=== PATIENT | female | born 1950 | race Caucasian/White ===

== ENCOUNTER 2016-08-02 13:48 | Inpatient (IN) | payer OTHER ==
[~2016-08-02] VITALS: Ht 157.5 cm; Wt 89.0 kg
[~2016-08-02 13:48] MED LIST: AMIO200T2 PO; ASPI81TA3 PO; IBUP800T25 PO; ONDA4TAB35 PO; OSLT75C PO
[2016-08-02] MEDS ORDERED: SOD CHLORIDE 0.9% 1,000 ML IV STA (20:00)
[2016-08-02] MEDS ORDERED: ONDANSETRON 4 MG INJ IV STA (20:00)
[2016-08-02] MEDS ORDERED: KETOROLAC 15 MG INJ IV STA (20:00)
[2016-08-02 20:28] LABS: ADD SCAN DIFF NO
[2016-08-02 20:31] LABS: BASOPHILS % 0.5 % (0.0-2.0); EOSINOPHILS # 0.1 10^3/ul (0.0-0.5); EOSINOPHILS % 1.1 % (0.0-7.0); HEMATOCRIT 39.9 % (37.0-47.0); HEMOGLOBIN 13.1 g/dl (12.0-16.0); LYMPHOCYTES # 1.8 10^3/ul (0.8-2.9); LYMPHOCYTES % 28.1 % (15.0-51.0); MEAN CORPUSCULAR HEMOGLOBIN 30.7 pg (29.0-33.0); MEAN CORPUSCULAR HGB CONC 32.8 g/dl (32.0-37.0); MEAN CORPUSCULAR VOLUME 93.4 fl (82.0-101.0); MEAN PLATELET VOLUME 9.6 fl (7.4-10.4); MONOCYTE # 0.7 10^3/ul (0.3-0.9); MONOCYTES % 10.6 % (0.0-11.0); NEUTROPHIL # 3.8 10^3/ul (1.6-7.5); NEUTROPHILS % 59.5 % (39.0-77.0); PLATELET COUNT 245 10^3/UL (140-415); RED BLOOD COUNT 4.27 10^6/ul (4.20-5.40); RED CELL DISTRIBUTION WIDTH 13.6 % (11.5-14.5); WHITE BLOOD COUNT 6.4 10^3/ul (4.8-10.8)
[2016-08-02 20:43] LABS: ALBUMIN 3.8 g/dl (3.3-4.9); CHLORIDE 105 mmol/L (97-110); POTASSIUM 3.9 mmol/L (3.5-5.1); SODIUM 140 mmol/L (135-144)
[2016-08-02 20:45] LABS: CREATININE 0.84 mg/dl (0.44-1.00)
[2016-08-02 20:46] LABS: ALANINE AMINOTRANSFERASE 28 IU/L (13-69); ALBUMIN/GLOBULIN RATIO 1.31; ALKALINE PHOSPHATASE 105 IU/L (42-121); ANION GAP 15 (8-16); ASPARTATE AMINO TRANSFERASE 26 IU/L (15-46); BILIRUBIN,INDIRECT 0.1 mg/dl (0-1.1); BILIRUBIN,TOTAL 0.1 mg/dl (0.2-1.3); BLOOD UREA NITROGEN 24 mg/dl (7-20); CALCIUM 9.4 mg/dl (8.4-10.2); CARBON DIOXIDE 24 mmol/L (21-31); GLUCOSE 110 mg/dl (70-220); TOTAL PROTEIN 6.7 g/dl (6.1-8.1)
[2016-08-02 21:04] LABS: TROPONIN-I < 0.012 ng/ml (0.00-0.12)
--- NOTE | 2016-08-02 21:04 | RADRPT ---
PROCEDURE: XR Chest. CLINICAL INDICATION: Abdominal pain. Chest pain. TECHNIQUE: Single frontal view of the chest was obtained COMPARISON: Chest dated 08/16/2014. FINDINGS: Mild cardiomegaly. Portable technique accentuates pulmonary vascular markings. Mild pulmonary vascular congestion. There is no pleural effusion or pneumothorax. IMPRESSION: Mild pulmonary vascular congestion. RPTAT: [facility] Physician Cherie Date Time Electronically viewed and signed by Shiela Rendon Physician on 08/02/2016 21:03 RS/
--- NOTE | 2016-08-02 21:54 | ERA ---
ER Documentation Chief Complaint Date/Time DATE: 08/02/16 TIME: 21:46 Chief Complaint dizzy,tired,[place],sob x 3 days HPI 66-year-old woman with multiple complaints including chest pain and pressure, palpitations, feeling weak, dizzy and tired 3 days. She does have a history of atrial fibrillation and has been using her medications including amiodarone daily as prescribed. She denies loss of consciousness, no melena or blood per rectum, no fevers or chills, no weakness in her arms or legs. ROS All systems reviewed and are negative except as per history of present illness. Medications Home Meds Active Scripts Ibuprofen* (Motrin*) 800 Mg Tab, 800 MG PO Q6H Y for PAIN AND OR ELEVATED TEMP, #30 TAB Prov:BENITO ZHU MD 05/16/15 Ondansetron Hcl* (Zofran* ODT) 4 mg -ODT Tab.disper, 4 MG PO Q6 Y for NAUSEA AND /OR VOMITING, #30 TAB Prov:BENITO ZHU MD 05/16/15 Oseltamivir Phosphate* (Tamiflu*) 75 Mg Capsule, 75 MG PO BID for 5 Days, CAP Prov:BENITO ZHU MD 05/16/15 Aspirin* (Aspirin* Chew) 81 Mg Tab.chew, 81 MG PO DAILY, #30 TAB.CHEW 11 Refills Prov:SHIRA MARKHAM 10/17/14 Amiodarone Hcl* (Amiodarone Hcl*) 200 Mg Tablet, 200 MG PO DAILY, #30 TAB 3 Refills Take 200mg twice a day for 5 days. Then 200mg once a day Prov:SHIRA MARKHAM 10/17/14 Amiodarone Hcl* (Amiodarone Hcl*) 200 Mg Tablet, 200 MG PO BID, #10 TAB Prov:SHIRA MARKHAM 10/17/14 Allergies Allergies: Coded Allergies: Penicillins (Unverified Allergy, Unknown, PRURITUS, 10/16/14) PMhx/Soc Atrial fibrillation, hypertension, possible CHF History of Surgery: Yes (HYSTERECTOMY) Anesthesia Reaction: No Hx Neurological Disorder: No Hx Respiratory Disorders: No Hx Cardiac Disorders: Yes (PALPITATIONS/AFIB, HTN) Hx Psychiatric Problems: Yes (ANXIETY) Hx Miscellaneous Medical Probl: Yes (HIGH CHOLESTEROL) Hx Alcohol Use: No Hx Substance Use: No Hx Tobacco Use: No Smoking Status: Never smoker FmHx Family History: No diabetes Physical Exam Vitals Vital Signs Date Time Temp Pulse Resp B/P Pulse Ox O2 Delivery O2 Flow Rate FiO2 08/02/16 22:19 97.7 99 16 90/61 98 Room Air 08/02/16 19:56 97.7 125 16 94/72 98 Room Air 08/02/16 13:56 98.1 99 20 105/62 99 Physical Exam GENERAL: Well-developed, well-nourished, afebrile HEENT: Moist mucous membranes, pink conjunctiva, no cervical spine tenderness or step-off deformities, no goiter, no jaundice or icterus, extraocular movements intact without pain. No submandibular induration, and no pharyngeal erythema NEURO: Alert and oriented 3, cranial nerves II through XII intact bilaterally, pupils equal round reactive to light, no focal deficits or facial asymmetry, sensation intact distally Strength 5/5 in upper and lower extremities bilaterally CARDIAC: Tachycardic and regular, no murmurs rubs gallops LUNGS: Bibasilar crackles no wheezing or stridor ABDOMEN: Soft nontender, no guarding, no rigidity, no rebound, no psoas sign no obturator sign. Normoactive bowel sounds SKIN: Warm and dry to touch, no abrasions, contusions, or hematomas, no lacerations, no ecchymosis, no target lesions, and without ulcers EXTREMITIES: No clubbing cyanosis, 2+ pitting edema in the lower extremities bilaterally, calves are bilaterally symmetrical, no Homans sign, no popliteal cord sign. Distal pulses equal and bilateral PSYCH: Normal affect without agitation or irritability Result Diagram: 08/02/16201408/02/162014 Results 24 hrs Laboratory Tests Test 08/02/16 20:15 White Blood Count 6.410^3/ul Red Blood Count 4.2710^6/ul Hemoglobin 13.1g/dl Hematocrit 39.9% Mean Corpuscular Volume 93.4fl Mean Corpuscular Hemoglobin 30.7pg Mean Corpuscular Hemoglobin Concent 32.8g/dl Red Cell Distribution Width 13.6% Platelet Count 70483^3/UL Mean Platelet Volume 9.6fl Neutrophils % 59.5% Lymphocytes % 28.1% Monocytes % 10.6% Eosinophils % 1.1% Basophils % 0.5% Nucleated Red Blood Cells % 0.0/100WBC Neutrophils # 3.810^3/ul Lymphocytes # 1.810^3/ul Monocytes # 0.710^3/ul Eosinophils # 0.110^3/ul Basophils # 0.010^3/ul Nucleated Red Blood Cells # 0.010^3/ul Sodium Level 140mmol/L Potassium Level 3.9mmol/L Chloride Level 105mmol/L Carbon Dioxide Level 24mmol/L Anion Gap 15 Blood Urea Nitrogen 24mg/dl Creatinine 0.84mg/dl Glucose Level 110mg/dl Calcium Level 9.4mg/dl Total Bilirubin 0.1mg/dl Direct Bilirubin 0.00mg/dl Indirect Bilirubin 0.1mg/dl Aspartate Amino Transf (AST/SGOT) 26IU/L Alanine Aminotransferase (ALT/SGPT) 28IU/L Alkaline Phosphatase 105IU/L Troponin I < 0.012ng/ml Total Protein 6.7g/dl Albumin 3.8g/dl Globulin 2.90g/dl Albumin/Globulin Ratio 1.31 Lipase 113U/L Current Medications Medications (Trade) Dose Ordered Sig/Javier Route PRN Reason Start Time Stop Time Status Last Admin Dose Admin Sodium Chloride (NS) 1,000 ml @ 1,000 mls/hr Q1H STAT IV 08/02/16 20:00 08/02/16 20:59 DC 08/02/16 20:17 Ondansetron HCl (Zofran Inj) 4 mg ONCE STAT IV 08/02/16 20:00 08/02/16 20:01 DC 08/02/16 20:17 Ketorolac Tromethamine 15 mg 15 mg ONCE STAT IV 08/02/16 20:00 08/02/16 20:01 DC 08/02/16 20:17 Sodium Chloride (NS) 1,000 ml @ 1,000 mls/hr Q1H ONCE IV 08/02/16 22:00 08/02/16 22:59 08/02/16 21:55 Aspirin (Aspirin) 325 mg ONCE ONCE PO 08/02/16 22:00 08/02/16 22:01 DC 08/02/16 21:52 Procedures/MDM IV line was established patient was placed on cardiac rn rhythm strip revealed a narrow complex irregular tachycardia at 110 bpm. Patient was afebrile. Blood pressure was low at about 90 mmHg and administered 1 L normal saline intravenously to support her BP although she does have atrial fibrillation with rapid ventricular rate with dyspnea and may require diltiazem therapy I will defer this until SBP is above 120 mmHg. EKG performed, read by me revealed a atrial fibrillation with rapid ventricular rate at 109 bpm, normal axis, narrow QRS complex, no concerning ST elevations or depressions noted. One view chest x-ray performed, read by me there is cephalization of vessels concerning for early decompensated heart failure, no acute infiltrates, no pneumothorax, no end of the diaphragm. CBC is unremarkable, electrolytes revealed dehydration with a BUN/creatinine of 24/0.8, liver function tests are normal, troponin was negative. I administered aspirin 325 mg p.o. for cardioprotective measures. For complaints of pain and nausea patient received Toradol 15 mg IV and Zofran 4 mg IV. Patient was afebrile. Urine analysis has been ordered results are pending I will follow-up. Patient will be admitted to telemetry setting for continued medical management and cardiology consultation. Departure Diagnosis: Primary Impression: Chest pain Qualified Code: R07.9 - Chest pain, unspecified type Additional Impressions: Atrial fibrillation with RVR Dehydration Condition: ASHLEY Martinez MD Aug 02, 2016 21:54
[2016-08-02] MEDS ORDERED: SOD CHLORIDE 0.9% 1,000 ML IV ONE (22:00)
[2016-08-02] MEDS ORDERED: ASPIRIN 325 MG TAB PO ONE (22:00)
[2016-08-02 22:19] VITALS: TEMP 97.7
--- NOTE | 2016-08-02 23:23 | HP ---
Date/Time of Note Date/Time of Note DATE: 08/02/16 TIME: 23:22 Assessment/Plan VTE Prophylaxis VTE Prophylaxis Intervention: other (Lovenox) Assessment/Plan Assessment/Plan 1) Chest pain Qualified Code: R07.9 - Chest pain, unspecified type - Admit to Telemetry - Serial Cardiac Enzymes - Repeat EKG in AM - CONSULT: Cardiology - Echocardiogram 2) Atrial fibrillation with RVR - Diltiazem if her BP stabilizes 3) Dehydration - IV Hydration given - BMP in AM HPI/ROS Admit Date/Time Admit Date/Time 08/02/16 2216 Hx of Present Illness This is a 66-year-old female who initially presented with complaints of feeling weak and dizzy associated with chest pain and palpitations.for the past 3 days. She has a history of atrial fibrillation and takes her medications, including amiodarone, daily as prescribed. She was nauseated, but that was already treated. She denies fever, chills, vomiting, sweating, upper back pain, diarrhea, cough, wheeze or shortness of breath. In the ER she was diagnosed with Atrial Fibrillation with RVR and mild dehydration. She was treated with IVF and her pulse came down to 110, still irregular. However, her SBP was only 90, so she was being hydrated further, prior to starting Diltiazem. Her last Echocardiogram was in 2014. ER Course per ER Physician: CBC is unremarkable, electrolytes revealed dehydration with a BUN/creatinine of 24/0.8, liver function tests are normal, troponin was negative. I administered aspirin 325 mg p.o. for cardioprotective measures. For complaints of pain and nausea patient received Toradol 15 mg IV and Zofran 4 mg IV. Patient was afebrile. Urine analysis has been ordered results are pending I will follow-up. Patient will be admitted to telemetry setting for continued medical management and cardiology consultation. ROS General: Admits: Generally feels weak Denies: Fever, Chills, Poor Appetite, Generalized Body Aches Eyes: Admits: Denies: Blurry Vision, Double Vision HENT: Admits: Denies: Ear Pain/Pressure, Runny/Stuffy Nose, Sore Throat, Tinnitus Cardiovascular: Admits: Chest Pain - resolved Denies: Palpitations, Leg Swelling Pulmonary: Admits: Denies: Cough, Wheeze, Shortness of Breath Gastrointestinal: Admits: Nausea, resolved Denies: Abdominal Pain, Vomiting, Diarrhea, Blood in Stool, Black-Colored Stool Urogenital: Admits: Denies: Burning with Urination, Urinary Frequency, Blood in Urine Musculoskeletal: Admits: Denies: Joint Pain, Joint Swelling, Muscle Pain Neurological: Admits: Dizziness, mild Denies: Headache, Numbness, Tingling, Shooting Pains Integumentary: Admits: Denies: Rash, Itch PMH/Family/Social Past Medical History Atrial Fibrillation; Hypertension; Diabetes; Anxiety; High Cholesterol; Arthritis, Knees; Possible CHF Past Surgical History HYSTERECTOMY Family History Significant Family History: other (No Diabetes) Social History Alcohol Use: none Smoking Status: Never smoker Drug Use: none Exam/Review of Systems Vital Signs Vitals Vital Signs Date Time Temp Pulse Resp B/P Pulse Ox O2 Delivery O2 Flow Rate FiO2 08/02/16 22:19 97.7 99 16 90/61 98 Room Air Exam Exam General: Overweight female, alert and oriented, in mild distress due to concern. No significant pain at this time. Eyes: Sclera White, EOMI HENT: Normocephalic/Atraumatic, External Ears/Nose Normal, Moist Mucus Membranes Neck: Supple, Trachea Midline Cardiovascular: Normal Rate, Normal Rhythm, Normal S1 and S2, No Murmur, No Extra Sounds. Radial pulse +2/4. No pedal edema. Pulmonary: Clear to Auscultation Bilaterally, Normal Respiratory Effort, No Rales, Rhonchi or Wheezes Gastrointestinal: Normoactive Bowel Sounds, Soft, Non-Tender/Non-Distended, No Hepatosplenomegaly Appreciated, No Pulsatile Masses Urogenital: Deferred Musculoskeletal: Normal Muscle Bulk and Tone Neurological: CN II - XII Grossly Intact, Non-Focal, Speech Normal Integumentary: Normal Moisture and Temperature, Good Turgor, No Jaundice, No Rash Lymphatic: No Cervical Lymphadenopathy Psychiatric: Appropriate Mood and Affect, Good Eye Contact Labs Result Diagram: 08/02/16201408/02/162014 Medications Medications Home Meds Active Scripts Ibuprofen* (Motrin*) 800 Mg Tab, 800 MG PO Q6H Y for PAIN AND OR ELEVATED TEMP, #30 TAB Prov:BENITO ZHU MD 05/16/15 Ondansetron Hcl* (Zofran* ODT) 4 mg -ODT Tab.disper, 4 MG PO Q6 Y for NAUSEA AND /OR VOMITING, #30 TAB Prov:BENITO ZHU MD 05/16/15 Oseltamivir Phosphate* (Tamiflu*) 75 Mg Capsule, 75 MG PO BID for 5 Days, CAP Prov:BENITO ZHU MD 05/16/15 Aspirin* (Aspirin* Chew) 81 Mg Tab.chew, 81 MG PO DAILY, #30 TAB.CHEW 11 Refills Prov:SHIRA MARKHAM 10/17/14 Amiodarone Hcl* (Amiodarone Hcl*) 200 Mg Tablet, 200 MG PO DAILY, #30 TAB 3 Refills Take 200mg twice a day for 5 days. Then 200mg once a day Prov:SHIRA MARKHAM 10/17/14 Amiodarone Hcl* (Amiodarone Hcl*) 200 Mg Tablet, 200 MG PO BID, #10 TAB Prov:SHIRA MARKHAM 10/17/14 Current Medications Medications (Trade) Dose Ordered Sig/Javier Route PRN Reason Start Time Stop Time Status Last Admin Dose Admin Sodium Chloride (NS) 1,000 ml @ 1,000 mls/hr Q1H STAT IV 08/02/16 20:00 08/02/16 20:59 DC 08/02/16 20:17 Ondansetron HCl (Zofran Inj) 4 mg ONCE STAT IV 08/02/16 20:00 08/02/16 20:01 DC 08/02/16 20:17 Ketorolac Tromethamine 15 mg 15 mg ONCE STAT IV 08/02/16 20:00 08/02/16 20:01 DC 08/02/16 20:17 Sodium Chloride (NS) 1,000 ml @ 1,000 mls/hr Q1H ONCE IV 08/02/16 22:00 08/02/16 22:59 08/02/16 21:55 Aspirin (Aspirin) 325 mg ONCE ONCE PO 08/02/16 22:00 08/02/16 22:01 DC 08/02/16 21:52 Procedures Procedures Laboratory Tests Test 08/02/16 20:15 White Blood Count 6.410^3/ul Red Blood Count 4.2710^6/ul Hemoglobin 13.1g/dl Hematocrit 39.9% Mean Corpuscular Volume 93.4fl Mean Corpuscular Hemoglobin 30.7pg Mean Corpuscular Hemoglobin Concent 32.8g/dl Red Cell Distribution Width 13.6% Platelet Count 06353^3/UL Mean Platelet Volume 9.6fl Neutrophils % 59.5% Lymphocytes % 28.1% Monocytes % 10.6% Eosinophils % 1.1% Basophils % 0.5% Nucleated Red Blood Cells % 0.0/100WBC Neutrophils # 3.810^3/ul Lymphocytes # 1.810^3/ul Monocytes # 0.710^3/ul Eosinophils # 0.110^3/ul Basophils # 0.010^3/ul Nucleated Red Blood Cells # 0.010^3/ul Sodium Level 140mmol/L Potassium Level 3.9mmol/L Chloride Level 105mmol/L Carbon Dioxide Level 24mmol/L Anion Gap 15 Blood Urea Nitrogen 24mg/dl Creatinine 0.84mg/dl Glucose Level 110mg/dl Calcium Level 9.4mg/dl Total Bilirubin 0.1mg/dl Direct Bilirubin 0.00mg/dl Indirect Bilirubin 0.1mg/dl Aspartate Amino Transf (AST/SGOT) 26IU/L Alanine Aminotransferase (ALT/SGPT) 28IU/L Alkaline Phosphatase 105IU/L Troponin I < 0.012ng/ml Total Protein 6.7g/dl Albumin 3.8g/dl Globulin 2.90g/dl Albumin/Globulin Ratio 1.31 Lipase 113U/L NICOLE SANTIAGO DO Aug 02, 2016 23:23
[2016-08-02] MEDS ORDERED: LORAZEPAM 2 MG INJ IV PRN (23:30)
[2016-08-02] MEDS ORDERED: NACL 0.9% 3 ML SYG IV SCH (23:30)
[2016-08-02] MEDS ORDERED: NITROGLYCERIN (SL) 0.4 MG TAB SL PRN (23:30)
[2016-08-02] MEDS ORDERED: morphine 2 MG INJ IV PRN (23:30)
[2016-08-02] MEDS ORDERED: HYDROCODONE/APAP (5/325) TAB PO PRN (23:30)
[2016-08-02 23:49] LABS: ADD UMIC NO; URINE BILIRUBIN (Dip) NEGATIVE (NEGATIVE); URINE BLOOD (Dip) NEGATIVE (NEGATIVE); URINE COLOR LT. YELLOW (YELLOW); URINE GLUCOSE (Dip) NEGATIVE (NEGATIVE); URINE KETONES (Dip) NEGATIVE (NEGATIVE); URINE LEUKOCYTE ESTERASE (Dip) NEGATIVE (NEGATIVE); URINE NITRITE (Dip) NEGATIVE (NEGATIVE); URINE TOTAL PROTEIN (Dip) NEGATIVE (NEGATIVE); URINE UROBILINOGEN (Dip) 0.2 E.U./dL (0.1-1.0)
[2016-08-03] VITALS (10 sets, daily range): BP systolic 90–130; BP diastolic 50–70; PULSE 54–98; RESP 17–20; Ht 157.5 cm; Wt 89.0 kg
[2016-08-03 00:08] LABS: CREATINE KINASE 96 IU/L (23-200)
[2016-08-03 00:18] LABS: CK-MB 0.98 ng/ml (0.0-2.4)
[2016-08-03 00:32] LABS: TROPONIN-I < 0.010 ng/ml (0.00-0.12)
[2016-08-03] MEDS: FAMOTIDINE 20 MG TAB PO SCH ×2 (08:03→20:41)
[2016-08-03 08:25] LABS: ADD SCAN DIFF NO
[2016-08-03 08:40] LABS: BASOPHILS % 0.8 % (0.0-2.0); EOSINOPHILS # 0.1 10^3/ul (0.0-0.5); EOSINOPHILS % 1.7 % (0.0-7.0); HEMATOCRIT 37.6 % (37.0-47.0); HEMOGLOBIN 12.1 g/dl (12.0-16.0); LYMPHOCYTES # 1.3 10^3/ul (0.8-2.9); LYMPHOCYTES % 26.7 % (15.0-51.0); MEAN CORPUSCULAR HEMOGLOBIN 30.8 pg (29.0-33.0); MEAN CORPUSCULAR HGB CONC 32.2 g/dl (32.0-37.0); MEAN CORPUSCULAR VOLUME 95.7 fl (82.0-101.0); MEAN PLATELET VOLUME 10.2 fl (7.4-10.4); MONOCYTE # 0.5 10^3/ul (0.3-0.9); MONOCYTES % 9.6 % (0.0-11.0); NEUTROPHIL # 2.9 10^3/ul (1.6-7.5); NEUTROPHILS % 60.8 % (39.0-77.0); PLATELET COUNT 220 10^3/UL (140-415); RED BLOOD COUNT 3.93 10^6/ul (4.20-5.40); RED CELL DISTRIBUTION WIDTH 13.9 % (11.5-14.5); WHITE BLOOD COUNT 4.8 10^3/ul (4.8-10.8)
[2016-08-03 08:58] LABS: CREATININE 0.72 mg/dl (0.44-1.00)
[2016-08-03 08:59] LABS: CALCIUM 8.3 mg/dl (8.4-10.2); CHOL/HDL RATIO 2.3 RATIO
[2016-08-03] MEDS ORDERED: ENOXAPARIN 40 MG/0.4 ML SYG SC SCH (09:00)
[2016-08-03 09:22] LABS: CREATINE KINASE 93 IU/L (23-200)
[2016-08-03 09:32] LABS: CK-MB 0.78 ng/ml (0.0-2.4)
[2016-08-03 09:49] LABS: TROPONIN-I < 0.010 ng/ml (0.00-0.12)
[2016-08-03] MEDS ORDERED: BISACODYL (EC) 5 MG TAB PO PRN (15:00)
[2016-08-03] MEDS: DOCUSATE SODIUM 100 MG CAP PO SCH ×2 (15:10→20:42)
[2016-08-03] MEDS ORDERED: BISACODYL 10 MG SUPP PR PRN (16:30)
--- NOTE | 2016-08-03 17:13 | PN ---
Date/Time of Note Date/Time of Note DATE: 08/03/16 TIME: 17:09 Assessment/Plan VTE Prophylaxis VTE Prophylaxis Intervention: LMWH Lines/Catheters IV [facility]from [facility] Saline Lock Urinary Cath still in place: No Assessment/Plan Chief Complaint/Hosp Course Assessment and plan 1. Atrial fibrillation with RVR, cardiology has been consulted, continue amiodarone, aspirin, Lovenox Obtain 2D echocardiogram 2. Essential hypertension, well-controlled on medical management 3. Constipation, continue Colace scheduled and MiraLAX as needed DVT prophylaxis: On Lovenox We will continue monitor patient closely for recommendation management treatment as clinical course Problems: Subjective 24 Hr Interval Summary Free Text/Dictation Patient denies of any chest pain or shortness of breath Continues to complain of having palpitation Tolerating oral intake Abdominal discomfort secondary to constipation Exam/Review of Systems Vital Signs Vitals Vital Signs Date Time Temp Pulse Resp B/P Pulse Ox O2 Delivery O2 Flow Rate FiO2 08/03/16 16:14 62 08/03/16 15:27 98.5 18 128/70 93 08/03/16 08:00 Nasal Cannula 2.0 Intake and Output 08/02/16 08/02/16 08/03/16 15:00 23:00 07:00 Intake Total 200 ml Balance 200 ml Exam General: The patient is well-developed, Not in acute distress. HEENT: Atraumatic, normocephalic. The pupils are equal and round . Neck: Supple with full range of motion. Chest: Normal expansion of the thorax during inspiration Lungs: Clear to auscultation bilaterally Heart: Normal S1-S2, irregular rhythm regular rate Abdomen: Soft , nontender, nondistended , bowel sounds are present. Extremities: Normal to inspection, no edema no cyanosis Neurologic: Normal mental status,The patient is awake, alert and oriented . Results Result Diagram: 08/03/16 0705 08/03/16 07 Results 24 hrs Laboratory Tests Test 08/02/16 20:15 08/02/16 23:35 08/02/16 23:50 08/03/16 07:05 White Blood Count 6.4 # 4.8 # Red Blood Count 4.27 3.93 L Hemoglobin 13.1 12.1 Hematocrit 39.9 37.6 Mean Corpuscular Volume 93.4 95.7 Mean Corpuscular Hemoglobin 30.7 30.8 Mean Corpuscular Hemoglobin Concent 32.8 32.2 Red Cell Distribution Width 13.6 13.9 Platelet Count 245 220 Mean Platelet Volume 9.6 # 10.2 Neutrophils % 59.5 60.8 Lymphocytes % 28.1 26.7 Monocytes % 10.6 9.6 Eosinophils % 1.1 1.7 Basophils % 0.5 0.8 Nucleated Red Blood Cells % 0.0 0.0 Neutrophils # 3.8 2.9 Lymphocytes # 1.8 1.3 Monocytes # 0.7 0.5 Eosinophils # 0.1 0.1 Basophils # 0.0 0.0 Nucleated Red Blood Cells # 0.0 0.0 Sodium Level 140 138 Potassium Level 3.9 4.0 Chloride Level 105 114 H Carbon Dioxide Level 24 22 Anion Gap 15 6 #L Blood Urea Nitrogen 24 H 17 Creatinine 0.84 0.72 Glucose Level 110 99 Calcium Level 9.4 8.3 L Total Bilirubin 0.1 L Direct Bilirubin 0.00 Indirect Bilirubin 0.1 Aspartate Amino Transf (AST/SGOT) 26 Alanine Aminotransferase (ALT/SGPT) 28 Alkaline Phosphatase 105 Troponin I < 0.012 < 0.010 < 0.010 Total Protein 6.7 Albumin 3.8 Globulin 2.90 Albumin/Globulin Ratio 1.31 Lipase 113 Urine Color LT. YELLOW Urine Clarity CLEAR Urine pH 6.5 Urine Specific Herman <=1.005 L Urine Ketones NEGATIVE Urine Nitrite NEGATIVE Urine Bilirubin NEGATIVE Urine Urobilinogen 0.2 E.U./dL Urine Leukocyte Esterase NEGATIVE Urine Hemoglobin NEGATIVE Urine Glucose NEGATIVE Urine Total Protein NEGATIVE Creatine Kinase 96 93 Creatine Kinase Index 1.0 0.8 Creatinine Kinase MB (Mass) 0.98 0.78 Triglycerides Level 89 Cholesterol Level 122 LDL Cholesterol, Calculated 52 HDL Cholesterol 52 Cholesterol/HDL Ratio 2.3 Medications Medications Current Medications Lorazepam (Ativan) 0.5 mg Q6H PRN IV ANXIETY; Start 08/02/16 at 23:30 Nitroglycerin (Nitroglycerin (Sl Tab) 0.4 Mg) 1 tab Q5M PRN SL CHEST PAIN; Start 08/02/16 at 23:30 Acetaminophen (Tylenol Tab) 650 mg Q6H PRN PO PAIN LEVEL 1-3 OR FEVER; Start at 23:30 Acetaminophen/ Hydrocodone Bitart (Tully (5/325)) 1 tab Q6H PRN PO PAIN LEVEL 4 -6; Start 08/02/16 at 23:30 Morphine Sulfate (morphine) 2 mg Q4H PRN IV PAIN LEVEL 7-10; Start 08/02/16 at 23:30 Famotidine (Pepcid) 20 mg Q12 PO Last administered on 08/03/16 08:03; Admin Dose 20 MG; Start 08/03/16 at 09:00 Enoxaparin Sodium (Lovenox) 40 mg DAILY SC Last administered on 08/03/16 08:05 ; Admin Dose 40 MG; Start 08/03/16 at 09:00 Docusate Sodium (Colace) 100 mg BID PO Last administered on 08/03/16 15:10; Admin Dose 100 MG; Start 08/03/16 at 15:00 Bisacodyl (Dulcolax) 5 mg DAILY PRN PO CONSTIPATION; Start 08/03/16 at 15:00 Bisacodyl (Dulcolax Supp) 10 mg DAILY PRN TN CONSTIPATION; Start 08/03/16 at 16: 30 ELIZABETH ANDERSON MD Aug 03, 2016 17:13
[2016-08-03] MEDS ORDERED: METOPROLOL 5 MG INJ IV PRN (17:30)
[2016-08-03] MEDS ORDERED: ONDANSETRON (ODT) 4 MG TAB ODT PRN (17:30)
[2016-08-03] MEDS ORDERED: FUROSEMIDE 20 MG INJ IV ONE (17:30)
--- NOTE | 2016-08-03 17:56 | RADRPT ---
Echocardiogram Report Patient Name: ROB CARRASCO Gender: Female Date: 1950 Study Date: 03-Aug-2016 Wardrobe Stylist: Diana Marrufo [facility] Location: [id number] Ref. Physician: NICOLE SANTIAGO Quality: Good Procedures: Transthoracic echocardiogram with complete 2D, M-Mode, and doppler examination. Indications: Atrial Fibrillation w/RVR. 2D/M Mode Doppler Measurement Value Normal Ranges Measurement Value Normal Ranges LVIDd 2D 4.5 3.5 - 5.6 cm AV Peak Meet 1.5 m/sec LVIDs 2D 2.8 2.1 - 4.1 cm AV Peak PG 9.0 mmHg FS 2D 37.5 % LVOT Peak Meet 0.9 m/sec LVPWd 2D 1.1 0.6 - 1.1 cm LVOT Peak PG 3.0 mmHg IVSd 2D 1.1 0.6 - 1.1 cm MV E Peak Meet 0.7 m/sec IVS/LVPW 2D 1.0 MV A Peak Meet 0.6 m/sec AoR Diam 2D 2.8 2.0 - 3.7 cm MV E/A 1.3 LA/Ao 2D 2 0 - 1 MV Decel Time 155 msec EDV 2D 89.9 cm3 MV E/A 1.3 ESV 2D 22.0 cm3 TR Peak Meet 2.6 m/sec LA Dimen 2D 4.2 2.3 - 4.0 cm TR Peak PG 27.0 mmHg RVSP 30.0 mmHg Findings Left Ventricle: Normal left ventricular systolic function. Normal left ventricular cavity size. Mild concentric left ventricular hypertrophy. Ejection fraction is visually estimated at 65 %. Tissue Doppler/Mitral Doppler indices are indeterminate in this study due to the presence of atrial fibrillation. Right Ventricle: Normal right ventricular size. Normal right ventricular systolic function. Left Atrium: There is mild enlargement of left atrium. Right Atrium: The right atrium is normal in size. Mitral Valve: Normal appearance and function of the mitral valve with trace physiologic regurgitation. Aortic Valve: Normal appearance of the aortic valve. No significant aortic stenosis or insufficiency. Tricuspid Valve: Normal appearance of the tricuspid valve. Estimated peak PA systolic pressure 30 mmHg. There is trace tricuspid regurgitation. Pulmonic Valve: Normal pulmonic valve appearance. Pericardium: Normal pericardium with no significant pericardial effusion. Aorta: Normal aortic root. IVC: Normal size and normal respiratory collapse consistent with normal right atrial pressure. Conclusions 1.Normal left ventricular systolic function. Normal left ventricular cavity size. Mild concentric left ventricular hypertrophy. Ejection fraction is visually estimated at 60 %. Tissue Doppler/Mitral Doppler indices are indeterminate in this study due to the presence of atrial fibrillation. 2.Normal right ventricular size. Normal right ventricular systolic function. 3.There is mild enlargement of left atrium. 4.Normal appearance and function of the mitral valve with trace physiologic regurgitation. 5.Normal appearance of the tricuspid valve. Estimated peak PA systolic pressure 30 mmHg. There is trace tricuspid regurgitation. Electronically Signed By: Monty Parisi 03-Aug-2016 17:55:29 -0700 Patient Name: ROB CARRASCO Study Date: 03-Aug-2016 [id number]
--- NOTE | 2016-08-03 18:23 | CONS ---
DATE OF ADMISSION: 08/02/2016 DATE OF CONSULTATION: 08/03/2016 REASON FOR CONSULTATION: Atrial fibrillation with rapid ventricular response. REQUESTING PHYSICIAN: Dr. Anderson from the hospitalist service. HISTORY OF PRESENT ILLNESS: Ms. Gonzalez is a 66-year-old female with a history of atrial fibrillation on amiodarone and aspirin, who presented with complaints of headache, dizziness, abdominal pain for approximately 4 days. Additionally, the patient had palpitations. Upon arrival in the emergency d epartment, temperature 98.1, blood pressure 105/62, pulse 99, did increase to 125. The patient's la bs revealed sodium 140, potassium 3.9, creatinine 0.8, BUN 24, AST 26, ALT 28. Troponin negative. LDL of 52, HDL 52. The patient's EKG revealed atrial fibrillation at a rate of 109, normal axis, no rmal intervals, nonspecific ST and T-wave abnormalities. The patient was subsequently admitted to [facility] floor and, since admit to the floor, has had conversion to sinus rhythm. The patient has had 2 f urther troponins return negative for a total of 3 negative troponins. PAST MEDICAL HISTORY: As above in HPI. MEDICATIONS CURRENTLY IN HOSPITAL: 1. Colace. 2. Dulcolax. 3. Pepcid. 4. Lovenox. 5. Ativan. 6. Sublingual nitroglycerin. 7. Fidelity. ALLERGIES: PENICILLIN. SOCIAL HISTORY: No tobacco, ETOH, or illicit drug use. FAMILY HISTORY: Negative for sudden cardiac or early CAD. REVIEW OF SYSTEMS: As above in HPI. CONSTITUTIONAL: No fevers, chills. PULMONARY: No current shortness of breath. CARDIOVASCULAR: No current chest pain. GASTROINTESTINAL: No vomiting. GENITOURINARY: No hematuria. MUSCULOSKELETAL: Degenerative joint disease. PSYCHIATRIC: The patient denies depression. NEUROLOGIC: No documented history of CVA. PHYSICAL EXAMINATION: VITAL SIGNS: Temperature 97.7, blood pressure initially 128/70, pulse 70, saturating 93%. GENERAL: The patient is alert, awake, complaining of headache, generalized weakness. NECK: No jugular venous distention. CHEST: Fair air movement throughout. HEART: Regular rate and rhythm. Normal S1, S2, I/ systolic murmur, nondisplaced PMI. ABDOMEN: Positive bowel sounds, soft. EXTREMITIES: Trace edema, 1+ pulses bilaterally posterior tibial. LABORATORIES: As above in [facility], with most recent from today, sodium 138, potassium 4.0, creatinine 0 .7, BUN 17. Troponin negative times a total of 3. LDL 52, HDL 52. White blood cell count 4.8, hem oglobin 12.1, platelet count of 220. IMAGING STUDIES: As above in [facility] with chest x-ray revealing mild pulmonary vascular congestion. ELECTROCARDIOGRAM: As above in [facility] with a repeat EKG from this morning revealing sinus bradycardia at 51 with normal axis, normal intervals, and no significant ST-T wave abnormalities. IMPRESSION: 1. Paroxysmal atrial fibrillation, now in sinus rhythm. 2. Congestive heart failure with chest x-ray, question systolic versus diastolic, could be diastoli c by prior echo 2014, likely acute on chronic. 3. Hypertension, currently with borderline hypotension. 4. Bradycardia status post conversion from atrial fibrillation. 5. Dizziness. 6. Generalized weakness and malaise. RECOMMENDATIONS: 1. At this time, would maintain the patient on telemetry monitoring to follow rhythm and rate close ly. 2. Would send a final troponin to complete the patient's rule out for myocardial infarction. 3. Check a 2D echocardiogram to further assess the patient's ejection fraction, wall motion, and an y major valve abnormalities. 4. We will initiate patient on low dose beta juma in attempt to control heart rates and resume t he patient's baseline amiodarone. 5. Given the patient's comorbid risk factors, it does place patient at increased CHADS score and th erefore benefit from systemic anticoagulation as possible. 6. Check a 2D echo to reassess the patient's ejection fraction, wall motion, and left atrial size. 7. Will give patient a dose of Lasix for gentle Lasix diuresis. 8. Further workup and treatment of patient's ongoing clinical issues per PMD and alternative consul tations. Thank you for allowing me to take part in the care of this patient. I will continue to follow along very closely with you with further recommendations to be made as the patient progresses through her inpatient hospital clinical course. Dictated By: JUSTIN GONZALEZ/NTS Conf#: [id number] DID#: [id number] CC: NICOLE SANTIAGO MD; ELIZABETH ANDERSON MD;*End*
[2016-08-03] MEDS: METOPROLOL 25 MG TAB PO SCH (20:41)
[2016-08-03] MEDS: AMIODARONE 200 MG TAB PO SCH (20:42)
[2016-08-03] MEDS: ENOXAPARIN 100 MG/ML SYG SC SCH (20:44)
[2016-08-03] MEDS ORDERED: AMIODARONE 200 MG TAB PO SCH (21:00)
[2016-08-04] VITALS (13 sets, daily range): BP systolic 92–120; BP diastolic 53–67; PULSE 45–82; RESP 18–20
[2016-08-04 07:21] LABS: ADD SCAN DIFF NO
[2016-08-04 07:23] LABS: BASOPHILS % 0.7 % (0.0-2.0); EOSINOPHILS # 0.1 10^3/ul (0.0-0.5); HEMATOCRIT 39.8 % (37.0-47.0); LYMPHOCYTES # 1.6 10^3/ul (0.8-2.9); LYMPHOCYTES % 28.8 % (15.0-51.0); MEAN CORPUSCULAR HEMOGLOBIN 30.5 pg (29.0-33.0); MEAN CORPUSCULAR HGB CONC 32.7 g/dl (32.0-37.0); MEAN CORPUSCULAR VOLUME 93.4 fl (82.0-101.0); MEAN PLATELET VOLUME 9.7 fl (7.4-10.4); MONOCYTE # 0.5 10^3/ul (0.3-0.9); MONOCYTES % 8.7 % (0.0-11.0); NEUTROPHIL # 3.2 10^3/ul (1.6-7.5); NEUTROPHILS % 59.6 % (39.0-77.0); PLATELET COUNT 249 10^3/UL (140-415); RED BLOOD COUNT 4.26 10^6/ul (4.20-5.40); RED CELL DISTRIBUTION WIDTH 13.6 % (11.5-14.5); WHITE BLOOD COUNT 5.4 10^3/ul (4.8-10.8)
[2016-08-04 07:33] LABS: POTASSIUM 3.7 mmol/L (3.5-5.1)
[2016-08-04 07:35] LABS: CHOL/HDL RATIO 2.2 RATIO
[2016-08-04 07:36] LABS: CREATININE 0.79 mg/dl (0.44-1.00)
[2016-08-04 07:37] LABS: CALCIUM 9.2 mg/dl (8.4-10.2)
[2016-08-04] MEDS: FAMOTIDINE 20 MG TAB PO SCH ×2 (08:27→20:41)
[2016-08-04] MEDS: AMIODARONE 200 MG TAB PO SCH ×2 (08:27→20:45)
[2016-08-04] MEDS: DOCUSATE SODIUM 100 MG CAP PO SCH (08:27)
[2016-08-04] MEDS: ASPIRIN 81 MG TAB PO SCH (08:27)
[2016-08-04] MEDS: METOPROLOL 25 MG TAB PO SCH ×2 (08:28→20:44)
[2016-08-04] MEDS: ENOXAPARIN 100 MG/ML SYG SC SCH ×2 (08:32→20:43)
[2016-08-04 09:03] LABS: THYROID STIMULATING HORMONE 1.48 MIU/L (0.465-4.680)
[2016-08-04] MEDS: ACETAMINOPHEN 325 MG TAB PO PRN (11:05)
--- NOTE | 2016-08-04 12:43 | CONS ---
Date/Time of Note Date/Time of Note DATE: 08/04/16 TIME: 12:34 Assessment/Plan Assessment/Plan Chief Complaint/Hosp Course IMPRESSION: 1. Paroxysmal atrial fibrillation, now in sinus rhythm/S gagan-negative trops/ NL TSH tis adnmit 2. Congestive heart failure with chest x-ray, diastolic, acute on chronic.-NL EF by echo this admit 3. Hypertension, currently with borderline hypotension. 4. Bradycardia status post conversion from atrial fibrillation. 5. Dizzinessstable but somewhat labile BP 6. Generalized weakness and malaise. Recc: -Tele -Low dose amio as tolerated only -BB as tolerated and may need to be d/c'd -Continue lovenox to eliquis/xarelto at D/C Problems: Consultation Date/Type/Reason Admit Date/Time Aug 02, 2016 at 22:18 Initial Consult Date 08/04/2016 Type of Consultation: Cardiology Reason for Consultation PAF/BRadycardia Referring Provider: ELIZABETH ANDERSON MD Exam/Review of Systems Vital Signs Vitals Vital Signs Date Time Temp Pulse Resp B/P Pulse Ox O2 Delivery O2 Flow Rate FiO2 08/04/16 12:31 45 08/04/16 11:38 98.2 19 118/67 100 08/03/16 08:00 Nasal Cannula 2.0 Intake and Output 08/03/16 08/03/16 08/04/16 15:00 23:00 07:00 Intake Total 940 ml Balance 940 ml Exam Review of Systems: CONSTITUTIONAL: No fevers, chills. PULMONARY: No sob CARDIOVASCULAR: No chest pain/palpitations GASTROINTESTINAL: No nausea/vomiting. GENITOURINARY: No hematuria/dysuria. MUSCULOSKELETAL: No myagias/arthalgias. PSYCHIATRIC: The patient denies depression. NEUROLOGIC: No weakness Constitutional: alert, oriented Psych: no complaints Head: normocephalic Neck: jvd (8 cm water), supple Respiratory: clear to auscultation Cardiovascular: other (bradycardic, regular rhythm) Gastrointestinal: non-tender, soft Musculoskeletal: muscle tone (normal) Extremities: edema (none) Neurological: other (None) Results Result Diagram: 08/04/16 0644 08/04/16 0644 Results 24 hrs Laboratory Tests Test 08/04/16 06:44 White Blood Count 5.4 Red Blood Count 4.26 Hemoglobin 13.0 Hematocrit 39.8 Mean Corpuscular Volume 93.4 Mean Corpuscular Hemoglobin 30.5 Mean Corpuscular Hemoglobin Concent 32.7 Red Cell Distribution Width 13.6 Platelet Count 249 Mean Platelet Volume 9.7 Neutrophils % 59.6 Lymphocytes % 28.8 Monocytes % 8.7 Eosinophils % 2.0 Basophils % 0.7 Nucleated Red Blood Cells % 0.0 Neutrophils # 3.2 Lymphocytes # 1.6 Monocytes # 0.5 Eosinophils # 0.1 Basophils # 0.0 Nucleated Red Blood Cells # 0.0 Sodium Level 142 Potassium Level 3.7 Chloride Level 107 Carbon Dioxide Level 25 Anion Gap 14 # Blood Urea Nitrogen 17 Creatinine 0.79 Glucose Level 97 Calcium Level 9.2 Triglycerides Level 106 Cholesterol Level 143 LDL Cholesterol, Calculated 59 HDL Cholesterol 63 # Cholesterol/HDL Ratio 2.2 Thyroid Stimulating Hormone (TSH) 1.480 Medications Medications Current Medications Lorazepam (Ativan) 0.5 mg Q6H PRN IV ANXIETY; Start 08/02/16 at 23:30 Nitroglycerin (Nitroglycerin (Sl Tab) 0.4 Mg) 1 tab Q5M PRN SL CHEST PAIN; Start 08/02/16 at 23:30 Acetaminophen (Tylenol Tab) 650 mg Q6H PRN PO PAIN LEVEL 1-3 OR FEVER Last administered on 08/04/16 11:05; Admin Dose 650 MG; Start 08/02/16 at 23:30 Acetaminophen/ Hydrocodone Bitart ([place] (5/325)) 1 tab Q6H PRN PO PAIN LEVEL 4 -6; Start 08/02/16 at 23:30 Morphine Sulfate (morphine) 2 mg Q4H PRN IV PAIN LEVEL 7-10; Start 08/02/16 at 23:30 Famotidine (Pepcid) 20 mg Q12 PO Last administered on 08/04/16 08:27; Admin Dose 20 MG; Start 08/03/16 at 09:00 Docusate Sodium (Colace) 100 mg BID PO Last administered on 08/04/16 08:27; Admin Dose 100 MG; Start 08/03/16 at 15:00 Bisacodyl (Dulcolax) 5 mg DAILY PRN PO CONSTIPATION; Start 08/03/16 at 15:00 Bisacodyl (Dulcolax Supp) 10 mg DAILY PRN [place] CONSTIPATION; Start 08/03/16 at 16: 30 Amiodarone HCl (Cordarone) 200 mg BID PO Last administered on 08/04/16 08:27; Admin Dose 200 MG; Start 08/03/16 at 21:00 Aspirin (Aspirin) 81 mg DAILY PO Last administered on 08/04/16 08:27; Admin Dose 81 MG; Start 08/04/16 at 09:00 Ondansetron HCl (Zofran Odt) 4 mg Q6 PRN ODT NAUSEA AND/OR VOMITING; Start 08/03 at 17:30 Metoprolol Tartrate (Lopressor) 12.5 mg BID PO Last administered on 08/03/16 20 :41; Admin Dose 12.5 MG; Start 08/03/16 at 21:00 Metoprolol Tartrate (Lopressor) 5 mg Q4H PRN IV HR>110 Hold SBP<100; Start 08/03 at 17:30 Enoxaparin Sodium (Lovenox) 90 mg Q12 SC Last administered on 08/04/16 08:32; Admin Dose 90 MG; Start 08/03/16 at 21:00 JUSTIN DAVIES Aug 04, 2016 12:43
--- NOTE | 2016-08-04 15:51 | PN ---
Date/Time of Note Date/Time of Note DATE: 08/04/16 TIME: 15:49 Assessment/Plan VTE Prophylaxis VTE Prophylaxis Intervention: other Lines/Catheters IV [facility] Type [facility]from [facility] [place] [facility] Urinary Cath still in place: No Assessment/Plan Chief Complaint/Hosp Course Assessment and plan 1. Atrial fibrillation with RVR, cardiology has been consulted, continue amiodarone, aspirin, Lovenox will transition to Eliquis 2. Essential hypertension, well-controlled on medical management 3. Constipation, resolved DVT prophylaxis: On Lovenox We will continue monitor patient closely for recommendation management treatment as clinical course Plan to discharge home tomorrow Problems: Subjective 24 Hr Interval Summary Free Text/Dictation Patient denies of any chest pain or shortness of breath Complains of having loose bowel No nausea vomiting diarrhea Exam/Review of Systems Vital Signs Vitals Vital Signs Date Time Temp Pulse Resp B/P Pulse Ox O2 Delivery O2 Flow Rate FiO2 08/04/16 12:31 45 08/04/16 11:38 98.2 19 118/67 100 08/03/16 08:00 Nasal Cannula 2.0 Intake and Output 08/03/16 08/03/16 08/04/16 15:00 23:00 07:00 Intake Total 940 ml Balance 940 ml Exam General: The patient is well-developed, Not in acute distress. HEENT: Atraumatic, normocephalic. The pupils are equal and round . Neck: Supple with full range of motion. Chest: Normal expansion of the thorax during inspiration Lungs: Clear to auscultation bilaterally Heart: Normal S1-S2, bradycardic Abdomen: Soft , nontender, nondistended , bowel sounds are present. Extremities: Normal to inspection, no edema no cyanosis Neurologic: Normal mental status,The patient is awake, alert and oriented . Results Result Diagram: 08/04/16 0644 08/04/16 0644 Results 24 hrs Laboratory Tests Test 08/04/16 06:44 White Blood Count 5.4 Red Blood Count 4.26 Hemoglobin 13.0 Hematocrit 39.8 Mean Corpuscular Volume 93.4 Mean Corpuscular Hemoglobin 30.5 Mean Corpuscular Hemoglobin Concent 32.7 Red Cell Distribution Width 13.6 Platelet Count 249 Mean Platelet Volume 9.7 Neutrophils % 59.6 Lymphocytes % 28.8 Monocytes % 8.7 Eosinophils % 2.0 Basophils % 0.7 Nucleated Red Blood Cells % 0.0 Neutrophils # 3.2 Lymphocytes # 1.6 Monocytes # 0.5 Eosinophils # 0.1 Basophils # 0.0 Nucleated Red Blood Cells # 0.0 Sodium Level 142 Potassium Level 3.7 Chloride Level 107 Carbon Dioxide Level 25 Anion Gap 14 # Blood Urea Nitrogen 17 Creatinine 0.79 Glucose Level 97 Calcium Level 9.2 Triglycerides Level 106 Cholesterol Level 143 LDL Cholesterol, Calculated 59 HDL Cholesterol 63 # Cholesterol/HDL Ratio 2.2 Thyroid Stimulating Hormone (TSH) 1.480 Medications Medications Current Medications Lorazepam (Ativan) 0.5 mg Q6H PRN IV ANXIETY; Start 08/02/16 at 23:30 Nitroglycerin (Nitroglycerin (Sl Tab) 0.4 Mg) 1 tab Q5M PRN SL CHEST PAIN; Start 08/02/16 at 23:30 Acetaminophen (Tylenol Tab) 650 mg Q6H PRN PO PAIN LEVEL 1-3 OR FEVER Last administered on 08/04/16 11:05; Admin Dose 650 MG; Start 08/02/16 at 23:30 Acetaminophen/ Hydrocodone Bitart ([place] (5/325)) 1 tab Q6H PRN PO PAIN LEVEL 4 -6; Start 08/02/16 at 23:30 Morphine Sulfate (morphine) 2 mg Q4H PRN IV PAIN LEVEL 7-10; Start 08/02/16 at 23:30 Famotidine (Pepcid) 20 mg Q12 PO Last administered on 08/04/16 08:27; Admin Dose 20 MG; Start 08/03/16 at 09:00 Docusate Sodium (Colace) 100 mg BID PO Last administered on 08/04/16 08:27; Admin Dose 100 MG; Start 08/03/16 at 15:00 Bisacodyl (Dulcolax) 5 mg DAILY PRN PO CONSTIPATION; Start 08/03/16 at 15:00 Bisacodyl (Dulcolax Supp) 10 mg DAILY PRN [place] CONSTIPATION; Start 08/03/16 at 16: 30 Amiodarone HCl (Cordarone) 200 mg BID PO Last administered on 08/04/16 08:27; Admin Dose 200 MG; Start 08/03/16 at 21:00 Aspirin (Aspirin) 81 mg DAILY PO Last administered on 08/04/16 08:27; Admin Dose 81 MG; Start 08/04/16 at 09:00 Ondansetron HCl (Zofran Odt) 4 mg Q6 PRN ODT NAUSEA AND/OR VOMITING; Start 08/03 at 17:30 Metoprolol Tartrate (Lopressor) 12.5 mg BID PO Last administered on 08/03/16 20 :41; Admin Dose 12.5 MG; Start 08/03/16 at 21:00 Metoprolol Tartrate (Lopressor) 5 mg Q4H PRN IV HR>110 Hold SBP<100; Start 08/03 at 17:30 Enoxaparin Sodium (Lovenox) 90 mg Q12 SC Last administered on 08/04/16 08:32; Admin Dose 90 MG; Start 08/03/16 at 21:00 ELIZABETH ANDERSON MD Aug 04, 2016 15:51
[2016-08-05] VITALS (9 sets, daily range): BP systolic 105–118; BP diastolic 56–64; PULSE 51–122; RESP 18–20
[2016-08-05 06:00] LABS: ADD SCAN DIFF NO
[2016-08-05 06:27] LABS: BASOPHIL # 0.1 10^3/ul (0.0-0.1); EOSINOPHILS # 0.1 10^3/ul (0.0-0.5); EOSINOPHILS % 2.2 % (0.0-7.0); HEMATOCRIT 43.3 % (37.0-47.0); HEMOGLOBIN 14.3 g/dl (12.0-16.0); LYMPHOCYTES # 1.6 10^3/ul (0.8-2.9); LYMPHOCYTES % 31.8 % (15.0-51.0); MEAN CORPUSCULAR HEMOGLOBIN 30.9 pg (29.0-33.0); MEAN CORPUSCULAR VOLUME 93.5 fl (82.0-101.0); MEAN PLATELET VOLUME 9.9 fl (7.4-10.4); MONOCYTE # 0.5 10^3/ul (0.3-0.9); MONOCYTES % 9.7 % (0.0-11.0); NEUTROPHIL # 2.7 10^3/ul (1.6-7.5); NEUTROPHILS % 55.1 % (39.0-77.0); PLATELET COUNT 253 10^3/UL (140-415); RED BLOOD COUNT 4.63 10^6/ul (4.20-5.40); RED CELL DISTRIBUTION WIDTH 13.6 % (11.5-14.5); WHITE BLOOD COUNT 4.9 10^3/ul (4.8-10.8)
[2016-08-05 06:49] LABS: CALCIUM 9.1 mg/dl (8.4-10.2); CREATININE 0.74 mg/dl (0.44-1.00)
[2016-08-05] MEDS: AMIODARONE 200 MG TAB PO SCH (08:26)
[2016-08-05] MEDS: ASPIRIN 81 MG TAB PO SCH (08:26)
[2016-08-05] MEDS: FAMOTIDINE 20 MG TAB PO SCH (08:26)
[2016-08-05] MEDS: ACETAMINOPHEN 325 MG TAB PO PRN (08:26)
[2016-08-05] MEDS: METOPROLOL 25 MG TAB PO SCH (08:27)
[2016-08-05] MEDS: ENOXAPARIN 100 MG/ML SYG SC SCH (08:32)
--- NOTE | 2016-08-05 14:23 | CONS ---
Date/Time of Note Date/Time of Note DATE: 08/05/16 TIME: 14:19 Assessment/Plan Assessment/Plan Chief Complaint/Hosp Course IMP: 1. Paroxysmal atrial fibrillation, now in sinus rhythm/S gagan-negative trops/ NL TSH tis admit(Had recurrence overnight 08/04 and pause on conversion 3.3 seconds) 2. Congestive heart failure with chest x-ray, diastolic, acute on chronic.-NL EF by echo this admit 3. Hypertension, currently with borderline hypotension. 4. Bradycardia status post conversion from atrial fibrillation. 5. Dizziness stable but somewhat labile BP 6. Generalized weakness and malaise. Recc: -Tele -Folllow HR closely -Low dose amio as tolerated only -BB as tolerated and may need to be d/c'd -Continue lovenox to eliquis/xarelto at D/C Problems: Consultation Date/Type/Reason Admit Date/Time Aug 02, 2016 at 22:18 Initial Consult Date 08/04/2016 Type of Consultation: Cardiology Reason for Consultation AF Referring Provider: ELIZABETH ANDERSON MD Exam/Review of Systems Vital Signs Vitals Vital Signs Date Time Temp Pulse Resp B/P Pulse Ox O2 Delivery O2 Flow Rate FiO2 08/05/16 12:21 51 08/05/16 11:10 98.2 19 117/56 98 08/03/16 08:00 Nasal Cannula 2.0 Intake and Output 08/04/16 08/04/16 08/05/16 15:00 23:00 07:00 Intake Total 500 ml 300 ml Balance 500 ml 300 ml Exam Review of Systems: CONSTITUTIONAL: No fevers, chills. PULMONARY: No sob CARDIOVASCULAR: No chest pain/palpitations GASTROINTESTINAL: No nausea/vomiting. GENITOURINARY: No hematuria/dysuria. MUSCULOSKELETAL: No myagias/arthalgias. PSYCHIATRIC: The patient denies depression. NEUROLOGIC: No weakness Constitutional: alert, oriented Psych: no complaints Head: normocephalic ENMT: mucosa pink and moist Neck: jvd (8 cm water), supple Respiratory: clear to auscultation Cardiovascular: other (bradycardic regular rhythm) Gastrointestinal: non-tender, soft Musculoskeletal: muscle tone (normal) Extremities: edema (none) Neurological: other (No focal deficits) Results Result Diagram: 08/05/16 0543 08/05/16 0543 Results 24 hrs Laboratory Tests Test 08/05/16 05:43 White Blood Count 4.9 Red Blood Count 4.63 Hemoglobin 14.3 Hematocrit 43.3 Mean Corpuscular Volume 93.5 Mean Corpuscular Hemoglobin 30.9 Mean Corpuscular Hemoglobin Concent 33.0 Red Cell Distribution Width 13.6 Platelet Count 253 Mean Platelet Volume 9.9 Neutrophils % 55.1 Lymphocytes % 31.8 Monocytes % 9.7 Eosinophils % 2.2 Basophils % 1.0 Nucleated Red Blood Cells % 0.0 Neutrophils # 2.7 Lymphocytes # 1.6 Monocytes # 0.5 Eosinophils # 0.1 Basophils # 0.1 Nucleated Red Blood Cells # 0.0 Sodium Level 140 Potassium Level 4.0 Chloride Level 111 H Carbon Dioxide Level 24 Anion Gap 9 # Blood Urea Nitrogen 15 Creatinine 0.74 Glucose Level 99 Calcium Level 9.1 Magnesium Level 2.0 Medications Medications Current Medications Lorazepam (Ativan) 0.5 mg Q6H PRN IV ANXIETY; Start 08/02/16 at 23:30 Nitroglycerin (Nitroglycerin (Sl Tab) 0.4 Mg) 1 tab Q5M PRN SL CHEST PAIN; Start 08/02/16 at 23:30 Acetaminophen (Tylenol Tab) 650 mg Q6H PRN PO PAIN LEVEL 1-3 OR FEVER Last administered on 08/05/16 08:26; Admin Dose 650 MG; Start 08/02/16 at 23:30 Acetaminophen/ Hydrocodone Bitart ([place] (5/325)) 1 tab Q6H PRN PO PAIN LEVEL 4 -6; Start 08/02/16 at 23:30 Morphine Sulfate (morphine) 2 mg Q4H PRN IV PAIN LEVEL 7-10; Start 08/02/16 at 23:30 Famotidine (Pepcid) 20 mg Q12 PO Last administered on 08/05/16 08:26; Admin Dose 20 MG; Start 08/03/16 at 09:00 Bisacodyl (Dulcolax) 5 mg DAILY PRN PO CONSTIPATION; Start 08/03/16 at 15:00 Bisacodyl (Dulcolax Supp) 10 mg DAILY PRN [place] CONSTIPATION; Start 08/03/16 at 16: 30 Amiodarone HCl (Cordarone) 200 mg BID PO Last administered on 08/05/16 08:26; Admin Dose 200 MG; Start 08/03/16 at 21:00 Aspirin (Aspirin) 81 mg DAILY PO Last administered on 08/05/16 08:26; Admin Dose 81 MG; Start 08/04/16 at 09:00 Ondansetron HCl (Zofran Odt) 4 mg Q6 PRN ODT NAUSEA AND/OR VOMITING; Start 08/03 at 17:30 Metoprolol Tartrate (Lopressor) 12.5 mg BID PO Last administered on 08/05/16 08 :27; Admin Dose 12.5 MG; Start 08/03/16 at 21:00 Metoprolol Tartrate (Lopressor) 5 mg Q4H PRN IV HR>110 Hold SBP<100 Last administered on 08/05/16 03:52; Admin Dose 5 MG; Start 08/03/16 at 17:30 Enoxaparin Sodium (Lovenox) 90 mg Q12 SC Last administered on 08/05/16 08:32; Admin Dose 90 MG; Start 08/03/16 at 21:00 JUSTIN DAVIES Aug 05, 2016 14:23
--- NOTE | 2016-08-05 15:29 | RADRPT ---
Vent Rate: 51 bpm RR Interval: 0 msec AL Interval: 146 msec QRS Duration: 86 msec QT Interval: 452 msec QTC Interval: 416 msec P-R-T [place]: 27 - 17 - 51 degrees Sinus bradycardia Otherwise normal ECG Electronically Signed By: Eugene Taveras [id number]
--- NOTE | 2016-08-05 15:37 | RADRPT ---
Vent Rate: 48 bpm RR Interval: 0 msec VT Interval: 152 msec QRS Duration: 88 msec QT Interval: 478 msec QTC Interval: 427 msec P-R-T [place]: 48 - 23 - 54 degrees Marked sinus bradycardia Abnormal ECG Electronically Signed By: Eugene Taveras [id number]
--- NOTE | 2016-08-05 16:10 | PDOCDIS ---
Discharge Instructions CONDITION Patient Condition: Good HOME CARE INSTRUCTIONS: Special Diet: Carb controlled ACTIVITY: Activity Restrictions: Slowly Increase Activity Rest between Activity Avoid heavy lifting FOLLOW UP/APPOINTMENTS Appointments Follow-up with primary care physician in 1 week Follow up with cardiology as outpatient ELIZABETH ANDERSON MD Aug 05, 2016 16:10
[2016-08-05] MEDS ORDERED: APIX2.5T PO (16:13)
[2016-08-05] MEDS ORDERED: IBUP800T25 PO (16:13)
[2016-08-05] MEDS ORDERED: HYDR-3498 PO (16:13)
[2016-08-05] MEDS ORDERED: AMIO100T4 PO (16:13)
[2016-08-05] MEDS ORDERED: METO-448 PO (16:13)
--- NOTE | 2016-08-05 17:59 | DS ---
DATE OF ADMISSION: 08/02/2016 DATE OF DISCHARGE: 08/05/2016 CLIP BAKER: Monty Parisi MD PROCEDURE: A 2-D echocardiogram with normal left ventricle systolic function, normal left ventricul ar cavity size, mild concentric left ventricular hypertrophy, ejection fraction is visually estimate d at 60%. Tissue indices indeterminate due to pressure the presence of atrial fibrillation. Normal right ventricle size, normal right ventricular systolic function. There is mild enlargement of lef t atrium. Normal appearance and function of the mitral valve with trace physiological regurgitation . Normal appearance of tricuspid valve. Estimated peak PA systolic pressure 30 mmHg. DIAGNOSES: 1. Atrial fibrillation with rapid ventricular response, amiodarone and aspirin. The patient has been placed on Eliquis. 2. Essential hypertension, well controlled on medical management. 3. Bradycardia, asymptomatic. 4. Constipation, resolved. MEDICATIONS: 1. [place]. 2. Amiodarone. 3. Eliquis. 4. Aspirin. 5. Ibuprofen. 6. Metoprolol. 7. Zofran. ALLERGIES: PENICILLIN. LABORATORY DATA: WBC 4.9, hemoglobin 14.3, hematocrit 43.3, platelets 253. Sodium 140, potassium 4 .0, chloride 111, bicarbonate 24, BUN 15, creatinine 0.74, glucose 99, magnesium 2.0. Triglyceride 106, total cholesterol 143, LDL 59, HDL 63. TSH 1.48. HOSPITAL COURSE: This is a 66-year-old female with past medical history of essential hypertension w ho presented to [facility] secondary to having lightheadedness, dizziness, palpita tions x3 days. The patient has a history of atrial fibrillation and takes her medication including amiodarone. She was found to be nauseated. In the ER, she was diagnosed with AFib with RVR and mil d dehydration. She was treated with IV fluids. Pulse improved to 110, still irregular. Cardiology was consulted. A 2D echocardiogram was obtained which showed normal ejection fraction. The patien t was placed on amiodarone and beta juma, although she became mildly bradycardic without any symp toms. The patient was placed on anticoagulation via Lovenox, then was transitioned to Eliquis. At this time, patient's heart rate is running between 55 to 65. She has been able to ambulate without any difficulty, tolerating oral intake without any discomfort. There has not been any sign of dizzi ness, lightheadedness or gait abnormality. At this time, patient is medically stable. From a cardi ology standpoint, the patient is medically stable to be discharged home with close followup with her cardiology as and outpatient with possible left heart catheterization, and her primary care physici an as an outpatient. Dictated By: ELIZABETH KELLEY/NTS Conf#: [id number] DID#: [id number]
== END 2016-08-05 18:52 | disposition home or self-care (01) | DRG 308 ==
LOC: E/R 13:48 → TEL 22:18
PROVIDERS: ADMIT Family Medicine; ATTEND Family Medicine
DX: I48.0 Paroxysmal atrial fibrillation (principal); I50.33 Acute on chronic diastolic (congestive) heart failure; E78.00 Pure hypercholesterolemia, unspecified; E86.0 Dehydration; K59.00 Constipation, unspecified; I11.0 Hypertensive heart disease with heart failure; Z88.0 Allergy status to penicillin
CPT/HCPCS: 36415; 71010; 80048; 80053; 80061; 81003; 82550; 82553; 83690; 83735; 84443; 84484; 85025; 93005; 93306; 96374; 96375; J1940; J1650; J1885; J2405; J7030